=== PATIENT | female | born 1955 | race Caucasian/White ===

== ENCOUNTER 2019-04-05 05:07 | Inpatient (IN) ==
[2019-04-05] MEDS ORDERED: LR 1,000 ML ONE ×2 (05:36→11:08)
[2019-04-05] MEDS ORDERED: KEFZOL 1 GM/D5W 2 GM/100 ML IVPB ONE (05:36)
[2019-04-05] MEDS ORDERED: XYLOCAINE-MPF 2% ONE (06:32)
[2019-04-05] MEDS ORDERED: SODIUM CHLORIDE 0.9% 10 ML ONE (06:32)
[2019-04-05] MEDS ORDERED: QUELICIN (DOSE) ONE (06:32)
[2019-04-05] MEDS ORDERED: NORCURON ONE (06:32)
[2019-04-05] MEDS ORDERED: HEPARIN ONE ×2 (06:35)
[2019-04-05] MEDS ORDERED: NS 2,000 ML ONE (06:35)
[2019-04-05] MEDS ORDERED: VERSED ONE (06:47)
[2019-04-05] MEDS ORDERED: COREG ONE (06:53)
[2019-04-05] MEDS ORDERED: HUMULIN R ONE (06:53)
[2019-04-05] MEDS ORDERED: DIPRIVAN 1% ONE (07:03)
[2019-04-05] MEDS ORDERED: EPHEDRINE ONE (07:15)
[2019-04-05] MEDS ORDERED: ROBINUL ONE ×3 (07:15→09:54)
[2019-04-05] MEDS ORDERED: HEPARIN (DOSE) ONE (07:38)
[2019-04-05 07:49] LABS: URINE SOURCE CATH
[2019-04-05 07:53] LABS: BILIRUBIN URINE NEGATIVE (NEGATIVE); BLOOD URINE NEGATIVE (NEGATIVE); COLOR YELLOW; GLUCOSE URINE 200 mg/dL (NEGATIVE); KETONE URINE NEGATIVE (NEGATIVE); LEUKOCYTES URINE NEGATIVE (NEGATIVE); NITRITE URINE NEGATIVE (NEGATIVE); PROTEIN URINE 50 mg/dL (NEGATIVE); SP GRAVITY URINE 1.017; TURBIDITY URINE CLEAR (CLEAR); UROBILINOGEN URINE NORMAL (NORMAL)
[2019-04-05 07:56] LABS: UR EPITHELIAL CELLS <10 /HPF (<10); URINE BACTERIA NEGATIVE /HPF; URINE RBC <10 /HPF (<10); URINE WBC <10 /HPF (<10)
[2019-04-05] MEDS ORDERED: FENTANYL ONE (08:41)
[2019-04-05] MEDS ORDERED: KEFZOL ONE (08:54)
[2019-04-05] MEDS ORDERED: OFIRMEV 1000 MG/ISOTONIC SOLN 1,000 MG/100 ML BOTTLE ONE (09:24)
[2019-04-05] MEDS: D50W SYRINGE IV STA ×3 (10:30→13:02)
--- NOTE | 2019-04-05 10:33 | OPERATIVE NOTE ---
PROCEDURE DATE: 04/05/2019 PREOPERATIVE DIAGNOSIS: Ischemic rest pain, bilateral lower extremities. POSTOPERATIVE DIAGNOSIS: Bilateral common iliac stenosis. PROCEDURES: 1. Aortogram with bilateral common iliac runoff. 2. Percutaneous balloon angioplasty (Cordis Powerflex Pro 5 mm x 2 cm balloon) of the right common iliac artery. 3. Percutaneous placement of right common iliac stent (Cordis 6 mm x 4 mm stent). 4. Femoral to femoral bypass with Hemashield gold graft 8 mm in diameter. SURGEON: Vinnie Singer MD. THREADER: Dr. Rinku Morel. Dr. Morel assisted with the entirety of the case. His presence was crucial to completion of the case. FINDINGS: Left common iliac was too calcified to get a wire passed. The right common iliac had disease and stenosis. COMPLICATIONS: None at time of this dictation. ESTIMATED BLOOD LOSS: 200 mL. SPECIMENS REMOVED: None. DRAINS: None. CONTRAST: 80 mL. BRIEF HISTORY: A 63-year-old female with bilateral lower extremity rest pain, felt that she would benefit from intervention. The risks, benefits, and alternatives were discussed with the patient and documented on the chart. All questions answered. DESCRIPTION OF PROCEDURE: After informed consent was obtained, patient brought to the operative theatre, transferred to the operating table, placed in the supine position. General endotracheal anesthesia was then performed without complication. A formal time-out was then performed confirming patient, date, procedure. All were in agreement. At that time, attention turned to the legs. Both legs were prepped and draped. We first turned our attention to the left groin. Using the ultrasound, I was able to cannulate the femoral artery, passed a wire. We tried multiple attempts to try to get the wire up past the common iliac stenosis using Trailblazer and Outback device, multiple different wires, but were unsuccessful despite multiple attempts. We did get in the subintimal plane, but could not reestablish into the lumen. We then accessed with ultrasound guidance the right side, passed a wire up, and then we were able to come around the bifurcation, but could not get a wire past the stenosis on the left side. We did see disease with our aortogram on the right side, elected to place a balloon angioplasty and place a stent. We brought up the balloon, which was a Cordis Powerflex Pro and inflated to nominal, waited, and then shot another arteriogram which showed some improvement. We elected to place a stent on the right common iliac, and we brought it up and placed a Cordis 6 mm x 4 mm stent. We elected do this because this was going to be the inflow from her femoral-femoral bypass. We then did bilateral femoral artery cutdown, isolated both proximal and distal aspects of both sides. We removed the catheters. We then placed and tunneled a Hemashield gold graft. The inflow was from the right side. We performed anastomosis after doing arteriotomy with a running 5-0 Prolene, placing some interrupted 6-0 Prolenes for areas that needed reinforcement. There was good flow. We then had the tunneled side connected to the left side and performed an arteriotomy, and sewed in the graft with 5-0 Prolene and did some repair stitches with 6-0 Prolene. There was flow noted. We released all proximal and distal control. The bleeding stopped with the repair stitches and pressure. There was flow noted both proximally and distally in both sides. We then closed the skin over the graft in multiple layers, and then placed ivette on the skin. The patient tolerated the procedure well, was transferred to the ICU to monitor overnight. cc: MD JT Mendoza
[2019-04-05] MEDS ORDERED: ZOFRAN IV PRN (11:00)
[2019-04-05] MEDS ORDERED: LR 1,000 ML IV SCH (11:00)
[2019-04-05] MEDS: EPINEPHRINE IV ONE ×2 (11:30→13:04)
[2019-04-05] MEDS: ALBUMIN 25% ONE ×2 (11:34→13:04)
[2019-04-05] MEDS ORDERED: D50W SYRINGE IV STA (12:18)
[2019-04-05] MEDS ORDERED: D5 1/2 NS 1,000 ML IV SCH (13:00)
[2019-04-05] MEDS: HUMULIN R SUBQ ONE ×2 (13:04→13:05)
[2019-04-05] MEDS ORDERED: TYLENOL PO PRN (13:34)
[2019-04-05] MEDS ORDERED: NS 500 ML IV ONE (13:38)
[2019-04-05] MEDS ORDERED: NS 1,000 ML IV ONE (13:51)
[2019-04-05] MEDS: POTASSIUM CHLORIDE 20 MEQ, MAGNESIUM SULFATE 2 GM, THIAMINE 100 MG, FOLIC ACID 1 MG, M.... IV SCH ×6 (14:44)
--- NOTE | 2019-04-05 14:48 | CONSULTATION ---
DATE OF CONSULTATION: 04/05/2019 PRIMARY CARE PROVIDER: Tommy Morel MD CONSULTING PROVIDER: Vinnie Singer MD REASON FOR CONSULTATION: Medical management. HISTORY OF PRESENT ILLNESS: Ms Mckinnon is a 63-year-old female, who just underwent a balloon angioplasty of the right common iliac artery with placement of stent and a femoral-to- femoral bypass with Dr. Vinnie Singer. After surgery, the patient became hypotensive and hypoglycemic. Per the , she took around 8 units of insulin this morning. She was given another 6 prior to surgery of regular insulin. She was initiated on a D5 half-normal saline drip. We will do a 500 L bolus, increase her IV flow rate, as well as put in order for Matias-Synephrine. Her blood pressures keep falling into 70s over 40s. We will go ahead and check stat laboratory data and a stat EKG. The patient is currently somewhat still sedated from surgery. She does wake up, but she does not really answer any questions. Her is at bedside. PAST MEDICAL HISTORY: Coronary artery disease status post 2 MIs, one in 2001 and one in 2015 as well as CABG in 2001, hypertension, diabetes, tobacco abuse, COPD, GERD, chronic pain syndrome, noncompliance with medication regimen. PAST SURGICAL HISTORY: 1. Stent x2. 2. Iliac stent. 3. A femoral-femoral bypass performed today by Dr. Singer. FAMILY HISTORY: Mother with alcohol abuse, as well as heart disease in family members before the age of 65. SOCIAL HISTORY: She is . She continues to smoke. ALLERGIES: No known drug allergies. HOME MEDICATIONS: Have not been verified. They are currently being compiled and pending. LABORATORY AND DIAGNOSTIC DATA: None. ASSESSMENT AND PLAN: 1. Hypoglycemia in a patient who is a type 1 diabetic. We will continue on a D5 half-normal saline drip. We increased the rate from 80 to 100. She has received 3 D50 pushes. We will check her blood sugars every 15 minutes until she is more stable and then q.1 h., then q.4 h. 2. Hypotension. The patient is just recently out of surgery. We are going to do a 500 L bolus. Have put in an order for Matias-Synephrine. Her pressures have been labile anywhere from 70s to 90s over 40s. 3. Coronary artery disease. Does not complain of any chest pain at this time. She is status post 2 stents. 4. Hypertension, now hypotensive. 5. Chronic pain syndrome. 6. Noncompliance with medications. Further recommendation to follow physician evaluation and laboratory and diagnostic data. Dictated by OVI Veliz for Mehul Adams MD cc: Mehul Adams MD
[2019-04-05] MEDS ORDERED: ZANAFLEX PO PRN (14:57)
[2019-04-05 15:03] LABS: BASO# 0.01 X1000 (0.0-0.2); BASO% 0.1 % (0.0-0.8); EOS# 0.03 X1000 (0.0-0.7); EOS% 0.4 % (0.0-10.0); HEMATOCRIT 34.4 % (37.0-47.0); HEMOGLOBIN 11.7 g/dL (12.0-16.0); LYMPH# 0.61 X1000 (1.2-3.4); LYMPH% 7.3 % (20.5-51.1); MCH 30.3 PG (27-31); MCV 89.1 FL (81-99); MONO# 0.43 X1000 (0.11-0.59); MONO% 5.1 % (1.7-9.3); MPV 11.8 FL (7.4-10.4); NEUT# 7.28 X1000 (1.4-6.5); NEUT% 87.1 % (42.2-75.2); PLT 107 X1000 (130-400); RBC 3.86 XMIL (4.2-5.4); RDW 13.4 % (11.5-14.5); WBC 8.36 X1000 (4.8-10.8)
[2019-04-05 15:47] LABS: LARGE PLATELETS OCCASIONAL; LYMPHS 12 % (21-51); MONO 2 % (1-9); SEGS 86 % (42-75)
[2019-04-05] MEDS: KEFZOL 2 GM in NS 100 ML IV SCH (15:55)
[2019-04-05] MEDS ORDERED: KEFZOL 2 GM in NS 100 ML IV SCH (16:00)
[2019-04-05 16:10] LABS: AGAP 9; ALB/GLOB RATIO 1.8; ALBUMIN 3.5 g/dL (3.5-5.0); ALKALINE PHOSPHATASE 55 U/L (32-104); BUN 9 mg/dL (8-22); CALCIUM 7.7 mg/dL (8.8-10.2); CHLORIDE 105 mmol/L (98-107); COSMO 279; CREATININE 0.4 mg/dL (0.5-0.9); ESTIMATED GFR > 60; GLUCOSE 86 mg/dL (70-104); GOT 16 U/L (10-30); GPT 8 U/L (10-36); MAGNESIUM 1.3 mg/dL (1.5-2.7); POTASSIUM 3.1 mmol/L (3.5-5.1); SODIUM 141 mmol/L (136-145); TCO2 27 mmol/L (25-35); TOTAL BILIRUBIN 0.34 mg/dL (0.20-1.00); TOTAL PROTEIN 5.4 g/dL (6.3-8.3)
--- NOTE | 2019-04-05 16:33 | EKG Report ---
Test Performed on : 04/05/2019 3:34:15 PM Test Reason : chest pain Blood Pressure : / mmHG Vent. Rate : 047 BPM Atrial Rate : 047 BPM P-R Int : 162 ms QRS Dur : 112 ms QT Int : 578 ms P-R-T Axes : 067 006 102 degrees QTc Int : 511 ms Sinus bradycardia. Lateral infarct , age undetermined Inferior infarct , age undetermined Prolonged QT Abnormal ECG When compared with ECG of 09-DEC-2018 20:42, Left bundle branch block is no longer present Lateral infarct is now present Inferior infarct is now present Confirmed by Yessi Zhang MD ([id number]) on 04/10/2019 9:28:42 PM
[2019-04-05] MEDS: MORPHINE IV PRN (16:51)
--- NOTE | 2019-04-05 18:21 | CONSULTATION ---
DATE OF CONSULTATION: 04/05/2019 ADDENDUM: Ms. Mckinnon underwent an aortogram with bilateral common iliac runoff, a balloon angioplasty of the right common iliac artery and placement of a right common iliac stent by Dr. Singer today. Postoperatively she became hypotensive and extremely hypoglycemic, so she has been admitted to the ICU and we have been consulted for medical management of medical disease. Ms. Mckinnon has a history of diabetes mellitus, severe peripheral vascular disease, dyslipidemia. I have seen and examined Ms. Mckinnon today. was at the bedside at the time of the encounter. I have reviewed all her labs and imaging studies. I do agree with the consult note that has been dictated by the MACHINE WIPER in the chart, and the plan reflects my discussions with her. I have also explained my plan with the patient as well as the . For tonight we are going to withhold the antihypertensives. We will give Ms. Mckinnon 1000 mL of normal saline bolus to see if we can bring up her blood pressure. We will put pressor on standby if needed. Please refer to the details of the consult note in the chart. cc: Mehul Adams MD
[2019-04-05] MEDS: HEPARIN SUBQ SCH (20:29)
[2019-04-05] MEDS: LYRICA PO SCH (20:30)
[2019-04-05] MEDS: MORPHINE IR PO SCH (20:30)
[2019-04-05] MEDS: MS CONTIN PO SCH (20:31)
[2019-04-05] MEDS: HUMULIN 70/30 SUBQ SCH (20:35)
[2019-04-05] MEDS ORDERED: COREG PO SCH (21:00)
[2019-04-06] MEDS: KEFZOL 2 GM in NS 100 ML IV SCH ×2 (00:23→08:11)
[2019-04-06] MEDS: POTASSIUM CHLORIDE 20 MEQ, MAGNESIUM SULFATE 2 GM, THIAMINE 100 MG, FOLIC ACID 1 MG, M.... IV SCH ×18 (00:23→22:34)
[2019-04-06] MEDS: NEO-SYNEPHRINE 50 MG in NS 250 ML IV SCH ×2 (00:43→22:34)
[2019-04-06] MEDS: HEPARIN SUBQ SCH ×3 (04:02→20:39)
[2019-04-06] MEDS: MORPHINE IV PRN ×3 (05:19→17:55)
[2019-04-06 05:47] LABS: BASO# 0.01 X1000 (0.0-0.2); BASO% 0.1 % (0.0-0.8); EOS# 0.08 X1000 (0.0-0.7); HEMATOCRIT 30.5 % (37.0-47.0); HEMOGLOBIN 9.4 g/dL (12.0-16.0); LYMPH% 17.9 % (20.5-51.1); MCH 29.9 PG (27-31); MCHC 30.8 g/dL (33-37); MCV 97.1 FL (81-99); MONO# 0.61 X1000 (0.11-0.59); MONO% 7.8 % (1.7-9.3); MPV 12.7 FL (7.4-10.4); NEUT# 5.72 X1000 (1.4-6.5); NEUT% 73.2 % (42.2-75.2); PLT 119 X1000 (130-400); RBC 3.14 XMIL (4.2-5.4); RDW 13.9 % (11.5-14.5); WBC 7.82 X1000 (4.8-10.8)
--- NOTE | 2019-04-06 07:04 | GENERAL SURGERY PROGRESS NOTE ---
DATE: 04/06/2019 SUBJECTIVE: Patient seems to be doing okay. She was transferred to the ICU after the postoperative period. They have required some pressors, although her blood pressure runs normally low. She is alert, interactive, saying her toes and legs are feeling better after her intervention. She does have at least a pulse in her femoral-femoral bypass that I can feel. Her incisions seem to be doing okay with dressings intact. From a surgical point of view, once she is off of pressors, would like to at least get her out of the ICU and hopefully we can get her discharged here soon, but we do need to get her off the vasopressors first. Clinically, I think she is doing okay, but will need to monitor her closely. I appreciate the hospitalists help. cc: MD Mehul Mendoza MD
[2019-04-06 07:11] LABS: AGAP 7; ALB/GLOB RATIO 1.5; ALBUMIN 3.4 g/dL (3.5-5.0); ALKALINE PHOSPHATASE 67 U/L (32-104); BUN 5 mg/dL (8-22); CALCIUM 7.6 mg/dL (8.8-10.2); CHLORIDE 104 mmol/L (98-107); COSMO 290; CREATININE 0.5 mg/dL (0.5-0.9); ESTIMATED GFR > 60; GOT 20 U/L (10-30); GPT 9 U/L (10-36); MAGNESIUM 2.7 mg/dL (1.5-2.7); SODIUM 137 mmol/L (136-145); TCO2 26 mmol/L (25-35); TOTAL BILIRUBIN 0.41 mg/dL (0.20-1.00); TOTAL PROTEIN 5.7 g/dL (6.3-8.3)
[2019-04-06 07:24] LABS: POTASSIUM 4.8 mmol/L (3.5-5.1)
[2019-04-06 07:33] LABS: GLUCOSE 434 mg/dL (70-104)
--- NOTE | 2019-04-06 07:48 | EKG Report ---
Test Performed on : 04/06/2019 07:30:28 AM Test Reason : chest pain Blood Pressure : / mmHG Vent. Rate : 054 BPM Atrial Rate : 054 BPM P-R Int : 154 ms QRS Dur : 092 ms QT Int : 538 ms P-R-T Axes : 074 -03 112 degrees QTc Int : 510 ms Sinus bradycardia. Inferior infarct (cited on or before 05-APR-2019) Anterolateral infarct (cited on or before 05-APR-2019) Prolonged QT Abnormal ECG When compared with ECG of 05-APR-2019 15:34, (Unconfirmed) Nonspecific T wave abnormality no longer evident in Anterior leads Confirmed by Yessi Zhang MD ([id number]) on 04/10/2019 9:29:43 PM
[2019-04-06] MEDS ORDERED: HUMULIN R SUBQ ONE (08:08)
[2019-04-06] MEDS: MS CONTIN PO SCH ×2 (08:11→20:37)
[2019-04-06] MEDS: VICON-C PO SCH (08:11)
[2019-04-06] MEDS: MORPHINE IR PO SCH ×2 (08:12→20:34)
[2019-04-06] MEDS: ASPIRIN EC PO SCH (08:12)
[2019-04-06] MEDS: LYRICA PO SCH ×2 (08:12→20:36)
[2019-04-06] MEDS ORDERED: PRINIVIL PO SCH (09:00)
[2019-04-06] MEDS ORDERED: HUMULIN 70/30 SUBQ SCH (09:00)
[2019-04-06] MEDS: PRAVACHOL PO SCH (09:48)
[2019-04-06] MEDS ORDERED: INSULIN PEN NEEDLES ONE (09:56)
[2019-04-06] MEDS: PATIENT'S OWN MED PO SCH (10:39)
[2019-04-06] MEDS ORDERED: DECADRON IV ONE (14:08)
--- NOTE | 2019-04-06 14:44 | PROGRESS NOTE ---
DATE: 04/06/2019 SUBJECTIVE: This morning, Ms. Mckinnon refers to be doing a lot better. She has not had any bowel movement yet. OBJECTIVE: Vital Signs: Blood pressure is 97/56, pulse of 59, respirations are 17, temperature is 98.1 degrees. General Examination: Ms. Mckinnon is a 63-year-old, female. She is in bed. No distress. HEENT: Mucosa is pink and moist. Anicteric. Acyanotic. Neck: Supple. Chest: Good air entry bilaterally. There were no crepitations. No rhonchi. Cardiovascular: Regular rate and rhythm. Abdomen: Soft, nontender. Bowel sounds present. Both inguinal regions have all been covered with sterile dressings. Extremities: Distal pulses are remarkably low. PREPARATION ROOM WORKER: The patient is awake, alert, and oriented. There is no focal neurological deficit. Laboratory Data: Has also been reviewed. The patient's glucose is down to 295. Cortisol level is 6.6. ASSESSMENT: 1. Persistent hypotension with extremely low levels of cortisol. Though the cortisol level is within the normal levels, it appears to be remarkably low for the stress that the patient is going through. I suspect there might be a transient adrenal insufficiency. We are going to give the patient a dose of dexamethasone 4 mg now and do a stimulation test for tomorrow morning. The patient is on intravenous fluids. 2. History of severe peripheral vascular disease, status post vascular intervention. 3. Dyslipidemia. 4. Diabetes mellitus. We will continue with insulin management. 5. Hypoglycemia yesterday, most likely due to insulin therapy. 6. Constipation. We will start the patient on a bowel regimen. PLAN: In general, Ms. Mckinnon is still on a pressor and the cortisol this morning looks remarkably inadequate for the level of stress that she is currently undergoing (hypotension). We suspect there is some adrenal insufficiency that could be transient. We will do a stimulation test. We will give the patient dexamethasone so it does not interfere with the test. Continue with the IV fluids. Continue addressing all her other comorbidities and evaluate her tomorrow morning. cc: MD JT Goode
[2019-04-06] MEDS: MIRALAX PO SCH (15:03)
[2019-04-06] MEDS: HUMALOG SUBQ SCH ×2 (15:04→20:37)
[2019-04-06] MEDS: HUMULIN 70/30 SUBQ SCH (20:39)
[2019-04-07] MEDS: HEPARIN SUBQ SCH ×3 (04:53→20:50)
[2019-04-07] MEDS ORDERED: NORCO-10 PO PRN (05:53)
[2019-04-07] MEDS ORDERED: CORTROSYN IV ONE (06:00)
[2019-04-07] MEDS: HUMALOG SUBQ SCH ×5 (06:12→20:47)
[2019-04-07 06:18] LABS: BASO# 0.01 X1000 (0.0-0.2); BASO% 0.1 % (0.0-0.8); EOS# 0.01 X1000 (0.0-0.7); EOS% 0.1 % (0.0-10.0); HEMATOCRIT 35.5 % (37.0-47.0); HEMOGLOBIN 12.3 g/dL (12.0-16.0); LYMPH# 1.07 X1000 (1.2-3.4); LYMPH% 12.7 % (20.5-51.1); MCH 30.6 PG (27-31); MCHC 34.6 g/dL (33-37); MCV 88.3 FL (81-99); MONO# 0.71 X1000 (0.11-0.59); MONO% 8.4 % (1.7-9.3); MPV 12.3 FL (7.4-10.4); NEUT# 6.65 X1000 (1.4-6.5); NEUT% 78.7 % (42.2-75.2); PLT 124 X1000 (130-400); RBC 4.02 XMIL (4.2-5.4); RDW 13.3 % (11.5-14.5); WBC 8.45 X1000 (4.8-10.8)
--- NOTE | 2019-04-07 06:41 | GENERAL SURGERY PROGRESS NOTE ---
DATE: 04/07/2019 SUBJECTIVE: Patient seems to be doing well. No major complaints. Nursing staff reports that she has been off vasopressors for several hours. OBJECTIVE: Vital Signs: Patient is currently afebrile. Her vital signs are stable. General: No acute distress. Cardiovascular: Regular rate and rhythm. Lungs: Grossly clear. Abdomen: Soft, appropriately tender. Bilateral groin incision is okay. Left and right leg seem to be perfused. There is flow noted in the graft in her suprapubic area. ASSESSMENT AND PLAN: A 63-year-old female currently postoperative day #2 from right common iliac angioplasty and stent and cqzkpdz-si-[id number] bypass. Postoperative state. At this time patient seems to be doing okay. She is off pressors. Hopefully, she can stay on pressors this morning and she can go to the floor. Clinically, she is doing well. Hoping that if everything goes according to the plan, she can be discharged in the next 24 to 48 hours. cc: MD Mehul Mendoza MD
[2019-04-07 06:57] LABS: AGAP 11; ALB/GLOB RATIO 1.2; ALBUMIN 3.5 g/dL (3.5-5.0); ALKALINE PHOSPHATASE 77 U/L (32-104); BUN 10 mg/dL (8-22); CALCIUM 8.4 mg/dL (8.8-10.2); CHLORIDE 98 mmol/L (98-107); COSMO 284; CREATININE 0.5 mg/dL (0.5-0.9); ESTIMATED GFR > 60; GLUCOSE 370 mg/dL (70-104); GOT 23 U/L (10-30); GPT 8 U/L (10-36); POTASSIUM 5.4 mmol/L (3.5-5.1); SODIUM 135 mmol/L (136-145); TCO2 26 mmol/L (25-35); TOTAL BILIRUBIN 0.31 mg/dL (0.20-1.00); TOTAL PROTEIN 6.5 g/dL (6.3-8.3)
[2019-04-07] MEDS: MIRALAX PO SCH (08:16)
[2019-04-07] MEDS: MS CONTIN PO SCH ×2 (08:16→20:57)
[2019-04-07] MEDS: VICON-C PO SCH (08:17)
[2019-04-07] MEDS: LYRICA PO SCH ×2 (08:17→20:57)
[2019-04-07] MEDS: MORPHINE IR PO SCH ×2 (08:17→20:56)
[2019-04-07] MEDS: PATIENT'S OWN MED PO SCH (08:27)
[2019-04-07] MEDS: ASPIRIN EC PO SCH (08:27)
[2019-04-07] MEDS: PRAVACHOL PO SCH (08:27)
[2019-04-07] MEDS ORDERED: HUMULIN 70/30 SUBQ SCH ×2 (09:00→21:00)
[2019-04-07] MEDS ORDERED: SOLU-CORTEF IV ONE (10:03)
[2019-04-07] MEDS ORDERED: SOLU-CORTEF IV SCH (10:15)
--- NOTE | 2019-04-07 11:20 | PROGRESS NOTE ---
DATE: 04/07/2019 SUBJECTIVE: This morning, Ms. Mckinnon refers to be doing okay. She denies any new complaints. I understand her phenylephrine has been off since the last night and her blood pressures have been fairly stable. OBJECTIVE: Vital signs: Blood pressure 99/61 with a MAP of 79, pulse of 53, respiration is 14, temperature 98 degrees. General: Ms Mckinnon is a 63-year-old female. She is in bed, no distress. HEENT: Mucosa is pink and moist. Anicteric. Acyanotic. Neck: Supple. Chest: Clear to auscultation. No crepitations. No rhonchi. Cardiovascular: Regular rate and rhythm, slightly bradycardic but no murmurs. Abdomen: Soft, nontender. Bowel sounds present. There is a dressing over both inguinal regions. Extremities: Distal pulses are remarkably reduced bilaterally. Central nervous system: Patient is awake, alert, and oriented. LABORATORY DATA: CBC is reviewed, is completely normal. Chemistry is also reviewed, potassium is 5.4. Rest of chemistry is unremarkable. We did a cosyntropin stimulation test. The patient seems to have adequate response to stress. I have reviewed the patient's previous data including a myocardial perfusion scan which was done in December 2018, which shows significant coronary artery disease with previous infarct or scars. Echocardiogram also done in December 2015 shows an ejection fraction of 40% with apical dyskinesis. ASSESSMENT: 1. Severe peripheral vascular disease, status post right common iliac angioplasty and stent with cyoxjze-ln-llliekc bypass. Today is day 2 postoperatively. 2. Hypotension, improved. The patient is not on any more pressors. Cortisol stimulation test did show adequate response. We think this is a combination of mild dehydration with medication for blood pressure control. This has been withheld for now. 3. Dyslipidemia. Patient is on statin therapy. 4. Diabetes mellitus with an A1c of 9.0. We will continue with insulin regimen. 5. Hypoglycemia episode, resolved. 6. Ischemic heart disease. The patient has a stress test which is remarkably abnormal. Echocardiogram shows ejection fraction of 40%. I think at some point, patient will need further cardiac studies including a possible left heart catheterization. However, we would defer that to her counter supply worker (Dr. Gilliam, who normally follows the patient up on outpatient basis), and the stress test that we are making reference to was actually done on an outpatient basis. The patient is currently asymptomatic from a cardiac standpoint. PLAN: In general, I think Ms. Mckinnon is doing a lot better. Blood pressure has normalized. I think she will be okay transitioning to the surgical floor. Hopefully, get her discharged in the next 24 to 48 hours if it is okay with Surgery. We will discontinue the Handley catheter today. cc: Mehul Adams MD
--- NOTE | 2019-04-08 06:06 | GENERAL SURGERY PROGRESS NOTE ---
DATE: 04/08/2019 The patient seems to be doing well. She was transferred from the floor. Her blood pressure has been stable. She has been hemodynamically stable throughout the course of the evening. She is up and ambulating, and doing okay. No major issues. Her incisions are healing. She has flow noted through her fem-fem bypass. Overall, she has done well. I think it is safe for her to be discharged home, if okay with the hospitalist. I did discuss her postoperative pain management with her pain specialist, and I have given her a prescription for pain medicine with their approval. We will have the patient discharged, if okay with the hospitalist. cc: MD Mehul Mendoza MD
[2019-04-08] MEDS: HUMALOG SUBQ SCH ×2 (06:54→12:31)
[2019-04-08] MEDS: HEPARIN SUBQ SCH (06:54)
[2019-04-08 07:19] LABS: BASO# 0.01 X1000 (0.0-0.2); BASO% 0.2 % (0.0-0.8); EOS# 0.07 X1000 (0.0-0.7); EOS% 1.4 % (0.0-10.0); HEMATOCRIT 33.3 % (37.0-47.0); HEMOGLOBIN 11.4 g/dL (12.0-16.0); LYMPH# 1.37 X1000 (1.2-3.4); LYMPH% 28.1 % (20.5-51.1); MCH 30.6 PG (27-31); MCHC 34.2 g/dL (33-37); MCV 89.3 FL (81-99); MONO# 0.41 X1000 (0.11-0.59); MONO% 8.4 % (1.7-9.3); MPV 12.6 FL (7.4-10.4); NEUT# 3.01 X1000 (1.4-6.5); NEUT% 61.9 % (42.2-75.2); PLT 92 X1000 (130-400); RBC 3.73 XMIL (4.2-5.4); RDW 13.5 % (11.5-14.5); WBC 4.87 X1000 (4.8-10.8)
[2019-04-08 07:22] LABS: AGAP 11; ALBUMIN 3.7 g/dL (3.5-5.0); BUN 12 mg/dL (8-22); CALCIUM 8.6 mg/dL (8.8-10.2); CHLORIDE 97 mmol/L (98-107); COSMO 283; CREATININE 0.5 mg/dL (0.5-0.9); ESTIMATED GFR > 60; GLUCOSE 295 mg/dL (70-104); PHOSPHORUS 3.3 mg/dL (2.7-4.5); POTASSIUM 4.5 mmol/L (3.5-5.1); SODIUM 136 mmol/L (136-145); TCO2 28 mmol/L (25-35)
[2019-04-08] MEDS: MS CONTIN PO SCH (08:20)
[2019-04-08] MEDS: LYRICA PO SCH (08:21)
[2019-04-08] MEDS: MORPHINE IR PO SCH (08:21)
[2019-04-08] MEDS: VICON-C PO SCH (08:22)
[2019-04-08] MEDS: MIRALAX PO SCH (08:22)
[2019-04-08] MEDS: PRAVACHOL PO SCH (08:22)
[2019-04-08] MEDS: ASPIRIN EC PO SCH (08:22)
[2019-04-08] MEDS: PATIENT'S OWN MED PO SCH (08:25)
[2019-04-08] MEDS ORDERED: HUMULIN 70/30 SUBQ SCH (09:00)
[2019-04-08] MEDS ORDERED: INSULIN PEN NEEDLES ONE (10:01)
[2019-04-08 11:39] VITALS: BP 145/45
--- NOTE | 2019-04-09 06:30 | DISCHARGE SUMMARY ---
ADMISSION DATE: 04/05/2019 DISCHARGE DATE: 04/08/2019 DISPOSITION: Home. FOLLOWUP: 1. Dr. Singer. 2. Dr. Tommy Morel. 3. Dr. Gillima. ADMISSION DIAGNOSIS: Severe peripheral vascular disease for intervention. We were actually consulted because of hypoglycemia and hypotension after the procedure. DISCHARGE DIAGNOSES: 1. Severe peripheral vascular disease, status post right common iliac angioplasty and stent with wzwdayp-gw-euovcyj bypass. 2. Hypotension, improved. 3. Dyslipidemia. 4. Diabetes mellitus with presenting A1c of 9.0. 5. Hypoglycemia secondary to insulin therapy. 6. Ischemic heart disease. The patient will follow up with Dr. Gilliam. DISCHARGE MEDICATIONS: 1. Tizanidine 4 mg p.o. t.i.d. 2. Aspirin. 3. Carvedilol 3.125 b.i.d. 4. Vitamin B complex. 5. Insulin NPH 20 units b.i.d. 6. Lisinopril 20 mg p.o. daily. 7. Pravastatin 40 mg p.o. daily. 8. Pregabalin 75 mg b.i.d. 9. MiraLAX 17 g p.o. daily. 10. [place] 10 mg once daily. REASON FOR CONSULT: Actually for medical management. HOSPITAL COURSE: Ms. Mckinnon is a 63-year-old female who was initially admitted on the surgery services because of severe peripheral vascular disease. She had undergone surgical intervention with Dr. Singer (surgery done was aortogram with bilateral common iliac runoff, percutaneous balloon angioplasty of the right common iliac artery, percutaneous placement of right common iliac stent and the [id number]-qp-iuktbms bypass. Postoperatively, Ms. Mckinnon developed hypotension and hypoglycemia, so she was admitted to the medical ICU and we were consulted. During the hospital course Ms. Mckinnon was adequately fluid resuscitated. She did require pressors for some time. She was given a dose of steroid because we thought that she had a transient adrenal insufficiency and her blood pressure improved. She also had hypoglycemia which was insulin induced. Insulin was withheld for about a day, but then the blood pressure bounced back and we had to titrate it better. During the hospital course Ms. Mckinnon improved. Upon review of her previous studies it became apparent that she does have ischemic heart disease and that she will need to also follow up with Dr. Gilliam on outpatient basis. Ms. Mckinnon is also a smoker and smoking cessation was strictly advised. All the discharge instructions were discussed with Ms. Mckinnon and she voiced understanding. This morning her vitals, blood pressure was 145/45, pulse of 53, respirations 15, temperature 98.4 degrees. Patient was saturating 100% on room air. Her bilateral inguinal region looks clean with sterile dressing over the surgical site. Surgery has already evaluated the patient and they are okay for her to be discharged. From medical standpoint we have made some changes to her insulin regimen and she has also been started on high intensity statin and she has been advised to follow up with her primary care doctor as well as with Dr. Gilliam. TIME SPENT: The time spent for discharge was 37 minutes. cc: Mehul Adams MD
== END 2019-04-08 14:34 | disposition home or self-care (01) | DRG 253 ==
LOC: SURHOLD 05:07 → ICU 11:43 → 4N 04-07 13:52
PROVIDERS: ADMIT Internal Medicine; ATTEND Surgery